=== PATIENT | female | born 1970 | race African-American/Black ===

== ENCOUNTER 2018-10-12 13:12 | Inpatient (IN) | payer MEDICARE, MEDICAID ==
[~2018-10-12] VITALS: Ht 170.2 cm; Wt 98.0 kg
[2018-10-12 13:58] LABS: HEMATOCRIT 40.5 % (37.0-47.0); HEMOGLOBIN 13.4 g/dl (12.0-16.0); IMMATURE GRANULOCYTES 0.4 % (0.0-5.0); MEAN CORPUSCULAR HGB 28.5 pG CALC (26.0-32.0); MEAN CORPUSCULAR HGB CONC 33.1 g/L CALC (32.0-36.0); NEUT# 6.48 thou/uL (2.00-7.15); RED BLOOD COUNT 4.71 mill/uL (4.20-5.60)
[2018-10-12 14:07] LABS: ANION GAP 15 (6-22 (CALC)); BUN 13 mg/dL (7-17); BUN/CREATININE RATIO 14 (12-20 (CALC)); CARBON DIOXIDE 24 mmol/l (22-30); CHLORIDE 105 mmol/l (95-108); CREATININE 0.9 mg/dL (0.5-1.0); GFR > 60 ML/MIN (>=60 (CALC)); GFR FOR AFR.AMER. > 60 ML/MIN (>=60 (CALC)); POTASSIUM 3.3 mmol/l (3.5-5.1); SODIUM 141 mmol/l (137-146)
[2018-10-12] MEDS ORDERED: AMLODIPINE BESYL5 MG PO (15:43)
[2018-10-12] MEDS ORDERED: ISOSORBIDE MONO30 MG PO (15:44)
[2018-10-12] MEDS ORDERED: LISINOPRIL40 MG PO (15:45)
[2018-10-12] MEDS ORDERED: LOPRESSOR25 M1 PO (15:45)
[2018-10-12] MEDS ORDERED: ATORVASTATIN CA40 MG PO (15:45)
[2018-10-12] MEDS ORDERED: VITAMIN C250 MG PO (15:46)
[2018-10-12] MEDS ORDERED: MELATONIN5 M3 PO (15:46)
[2018-10-12] MEDS ORDERED: ADLT ASA LOW81 MG PO (15:46)
[2018-10-12] MEDS ORDERED: COLACE100 MG PO (15:47)
[2018-10-12] MEDS ORDERED: SYMBICORT1 AE1 IN (15:47)
[2018-10-12 15:53] VITALS: BP 136/83
[2018-10-12 19:10] VITALS: BP 130/78
[2018-10-13 04:15] VITALS: BP 126/76
[2018-10-13 04:49] LABS: HEMATOCRIT 38.7 % (37.0-47.0); HEMOGLOBIN 12.6 g/dl (12.0-16.0); IMMATURE GRANULOCYTES 0.3 % (0.0-5.0); MEAN CELL VOLUME 86.8 fL CALC (80.0-100.0); MEAN CORPUSCULAR HGB 28.3 pG CALC (26.0-32.0); MEAN CORPUSCULAR HGB CONC 32.6 g/L CALC (32.0-36.0); NEUT# 7.98 thou/uL (2.00-7.15); RED BLOOD COUNT 4.46 mill/uL (4.20-5.60); RED CELL DISTRI WIDTH 15.2 % (11.5-15.5)
[2018-10-13 05:44] LABS: ALBUMIN 3.4 g/dL (3.2-5.0); ALKALINE PHOSPHATASE 80 u/l (38-126); AMYLASE < 30 u/l (30-110); ANION GAP 12 (6-22 (CALC)); BILIRUBIN, TOTAL 0.8 mg/dL (0.0-1.4); BUN 17 mg/dL (7-17); BUN/CREATININE RATIO 21 (12-20 (CALC)); CARBON DIOXIDE 24 mmol/l (22-30); CHLORIDE 111 mmol/l (95-108); CREATININE 0.8 mg/dL (0.5-1.0); GFR > 60 ML/MIN (>=60 (CALC)); GFR FOR AFR.AMER. > 60 ML/MIN (>=60 (CALC)); LIPASE 15 u/l (23-300); MAGNESIUM 2.5 mg/dL (1.6-2.3); POTASSIUM 3.9 mmol/l (3.5-5.1); SGOT/AST 20 u/l (14-36); SODIUM 143 mmol/l (137-146); TOTAL PROTEIN 6.3 g/dL (6.3-8.2)
[2018-10-13 08:48] VITALS: BP 119/56
[2018-10-13 12:28] VITALS: BP 133/85
[2018-10-13 15:29] VITALS: BP 127/76
[2018-10-13 19:30] VITALS: BP 151/64
[2018-10-14 04:22] VITALS: BP 129/73
[2018-10-14 08:50] VITALS: BP 125/82
[2018-10-14 17:00] VITALS: BP 136/62
[2018-10-14 20:10] VITALS: BP 135/77
[2018-10-15 04:05] VITALS: BP 149/91
[2018-10-15 05:45] LABS: HEMOGLOBIN 11.1 g/dl (12.0-16.0); MEAN CELL VOLUME 85.6 fL CALC (80.0-100.0); MEAN CORPUSCULAR HGB CONC 32.6 g/L CALC (32.0-36.0); NEUT# 10.55 thou/uL (2.00-7.15); RED BLOOD COUNT 3.97 mill/uL (4.20-5.60); RED CELL DISTRI WIDTH 15.8 % (11.5-15.5)
[2018-10-15 06:07] LABS: ALBUMIN 3.2 g/dL (3.2-5.0); ALKALINE PHOSPHATASE 82 u/l (38-126); BILIRUBIN, TOTAL 0.2 mg/dL (0.0-1.4); BUN 20 mg/dL (7-17); BUN/CREATININE RATIO 23 (12-20 (CALC)); CARBON DIOXIDE 25 mmol/l (22-30); CREATININE 0.9 mg/dL (0.5-1.0); GFR > 60 ML/MIN (>=60 (CALC)); GFR FOR AFR.AMER. > 60 ML/MIN (>=60 (CALC)); MAGNESIUM 2.2 mg/dL (1.6-2.3); POTASSIUM 4.1 mmol/l (3.5-5.1); SGOT/AST 32 u/l (14-36); SODIUM 142 mmol/l (137-146); TOTAL PROTEIN 5.8 g/dL (6.3-8.2)
[2018-10-15 06:09] LABS: ANION GAP 13 (6-22 (CALC)); CHLORIDE 108 mmol/l (95-108)
[2018-10-15 08:11] VITALS: BP 143/87
[2018-10-15 15:35] VITALS: BP 152/77
[2018-10-15 19:30] VITALS: BP 144/87
[2018-10-16 03:55] VITALS: BP 156/82
[2018-10-16 05:12] LABS: HEMATOCRIT 34.8 % (37.0-47.0); HEMOGLOBIN 11.4 g/dl (12.0-16.0); MEAN CELL VOLUME 85.9 fL CALC (80.0-100.0); MEAN CORPUSCULAR HGB 28.1 pG CALC (26.0-32.0); MEAN CORPUSCULAR HGB CONC 32.8 g/L CALC (32.0-36.0); NEUT# 9.5 thou/uL (2.00-7.15); RED BLOOD COUNT 4.05 mill/uL (4.20-5.60); RED CELL DISTRI WIDTH 15.9 % (11.5-15.5)
[2018-10-16 05:14] LABS: IMMATURE GRANULOCYTES 11.2 % (0.0-5.0)
[2018-10-16 05:33] LABS: ALBUMIN 3.3 g/dL (3.2-5.0); ALKALINE PHOSPHATASE 83 u/l (38-126); ANION GAP 15 (6-22 (CALC)); BILIRUBIN, TOTAL 0.3 mg/dL (0.0-1.4); BUN 16 mg/dL (7-17); BUN/CREATININE RATIO 20 (12-20 (CALC)); CARBON DIOXIDE 27 mmol/l (22-30); CHLORIDE 104 mmol/l (95-108); CREATININE 0.8 mg/dL (0.5-1.0); GFR > 60 ML/MIN (>=60 (CALC)); GFR FOR AFR.AMER. > 60 ML/MIN (>=60 (CALC)); MAGNESIUM 2.1 mg/dL (1.6-2.3); SGOT/AST 22 u/l (14-36); SODIUM 142 mmol/l (137-146)
[2018-10-16 08:11] VITALS: BP 149/90
[2018-10-16 16:10] VITALS: BP 147/87
[2018-10-16 19:00] VITALS: BP 143/80
[2018-10-17 04:45] VITALS: BP 154/95
[2018-10-17 08:42] VITALS: BP 165/81
[2018-10-17 11:11] VITALS: BP 140/79
[2018-10-17] MEDS ORDERED: LEVAQUIN750 MG PO (12:53)
[2018-10-17] MEDS ORDERED: SYMBICORT1 AE1 IN (12:53)
[2018-10-17] MEDS ORDERED: PREDNISONE10 MG PO (12:53)
[2018-10-17] MEDS ORDERED: IPRATROPIU0.5 MG/3 M IN (12:53)
[2018-10-17 13:59] VITALS: BP 142/81
== END 2018-10-17 14:47 | disposition home or self-care (01) | DRG 194 ==
LOC: ED 13:12 → ED-I 14:31 → ED 14:31 → ED-I 14:35 → ED 14:37 → MS2 14:38
PROVIDERS: Family Medicine; ADMIT Internal Medicine Nephrology; ATTEND Internal Medicine Nephrology
DX: J18.9 Pneumonia, unspecified organism (principal); J45.901 Unspecified asthma with (acute) exacerbation; I69.154 Hemiplegia and hemiparesis following nontraumatic intracerebral hemorrhage affecting left non-dominant side; I10 Essential (primary) hypertension; E78.5 Hyperlipidemia, unspecified
CPT/HCPCS: J1650; J3475